=== PATIENT | male | born 1965 | race Two or more races ===

== ENCOUNTER 2024-05-11 15:16 | Emergency (ER) | payer BC ==
[~2024-05-11] VITALS: Ht 182.9 cm; Wt 81.6 kg
[2024-05-11] MEDS ORDERED: ACETAMINOPHEN 500 MG GEL..CAP PO ONE (16:21)
[2024-05-11] MEDS ORDERED: GUAIFENESIN 200 MG/10 ML BLIST.PACK PO STA (16:50)
[2024-05-11 17:18] LABS: HEMATOCRIT 42.7 % (39.0-48.0); HEMOGLOBIN 14.9 g/dL (13-16.00); MEAN CELL VOLUME 94.5 fL (80.0-100.00); MEAN CORPUSCULAR HGB CONC 34.9 g/dl (32.0-36.0); PLATELET COUNT 156 K/uL (150-450); RED BLOOD COUNT 4.52 M/uL (4.00-6.00); RED CELL DISTRIBUTION WIDTH 13.4 % (11.5-14.5)
[2024-05-11] MEDS ORDERED: KETOROLAC TROMETHAMINE 30 MG VIAL IM STA (17:48)
[2024-05-11] MEDS ORDERED: GUAIFENESIN 200 MG/10 ML BLIST.PACK PO ONE (17:55)
[2024-05-11] MEDS ORDERED: KETOROLAC TROMETHAMINE 30 MG VIAL ONE (17:55)
== END 2024-05-11 18:03 | disposition home or self-care (01) ==
LOC: ER 15:17
PROVIDERS: General Practice
DX: U07.1 COVID-19 (principal)